=== PATIENT | female | born 1940 | race Caucasian/White ===

== ENCOUNTER 2024-04-09 14:18 | Inpatient (IN) | payer MEDICARE ==
[~2024-04-09] VITALS: Ht 160 cm; Wt 52.6 kg
[2024-04-09] MEDS ORDERED: IPRATROPIUM NEB FS 0.5 MG/2.5 ML AMPUL.NEB ONE (14:45)
[2024-04-09] MEDS ORDERED: ALBUTEROL FS 2.5 MG/3 ML VIAL.NEB ONE (14:45)
[2024-04-09 14:57] VITALS: O2SAT 94
[2024-04-09] MEDS ORDERED: methylPREDNISolone SOD SUCC 125 MG/2ML VIAL ONE (14:57)
[2024-04-09] MEDS: ALBUTEROL FS 2.5 MG/3 ML VIAL.NEB CONTNEB ONE (14:57)
[2024-04-09] MEDS: IPRATROPIUM NEB FS 0.5 MG/2.5 ML AMPUL.NEB NEB ONE (14:57)
[2024-04-09 15:00] LABS: BASOPHILS % (AUTO) 0.1 % (0.0-2.0); EOSINOPHILS % (AUTO) 0.1 % (0.0-6.0); HEMATOCRIT 42 % (33-45); HEMOGLOBIN 13.7 g/dL (11.5-14.8); LYMPHOCYTES # (AUTO) 0.9 K/uL (0.8-4.8); LYMPHOCYTES % (AUTO) 12.6 % (20.0-44.0); MEAN CORPUSCULAR HEMOGLOBIN 31 PG (26.0-33.0); MEAN CORPUSCULAR HGB CONC 32 g/dl (31.0-36.0); MEAN CORPUSCULAR VOLUME 94 fL (82-100); MONOCYTES # (AUTO) 0.3 K/uL (0.1-1.30); MONOCYTES % (AUTO) 4.2 % (2.0-12.0); NEUTROPHILS # (AUTO) 5.9 K/uL (1.8-8.9); PLATELET COUNT (AUTO) 242 K/uL (150-450); RED BLOOD CELL COUNT(AUTO) 4.49 MIL/uL (4.0-5.2); RED CELL DISTRIBUTION WIDTH 15.6 % (11.5-15.0); WHITE BLOOD COUNT (AUTO) 7.2 K/uL (4.3-11.0)
[2024-04-09 15:12] VITALS: O2SAT 94
[2024-04-09 15:13] VITALS: O2SAT 94
[2024-04-09 15:18] LABS: CALCIUM, SERUM 9.1 mg/dL (8.5-10.1); CARBON DIOXIDE 26 mmol/L (21-32); CHLORIDE 105 mmol/L (98-107); CREATININE 0.8 mg/dL (0.6-1.3); GLUCOSE 165 mg/dL (74-106); POTASSIUM 3.6 mmol/L (3.5-5.1); SODIUM SERUM 141 mmol/L (136-145); UREA NITROGEN, BLOOD 15 mg/dL (7-18)
[2024-04-09 15:23] VITALS: O2SAT 92
[2024-04-09 15:25] LABS: ALANINE AMINOTRANSFERASE 18 U/L (12-78); ALBUMIN 2.7 g/dL (3.4-5.0); ALKALINE PHOSPHATASE 69 U/L (46-116); ASPARTATE AMINOTRANSFERASE 8 U/L (15-37); BILIRUBIN,DIRECT 0.1 mg/dL (0.0-0.2); BILIRUBIN,TOTAL 0.4 mg/dL (0.2-1.0); TOTAL PROTEIN, SERUM 6.5 g/dL (6.4-8.2)
[2024-04-09] MEDS: methylPREDNISolone SOD SUCC 125 MG/2ML VIAL IV ONE (15:25)
[2024-04-09 15:26] LABS: LACTIC ACID 1.5 mmol/L (0.4-2.0)
[2024-04-09] MEDS ORDERED: ESCI10TA PO (16:12)
[2024-04-09] MEDS ORDERED: BENZ-13 PO (16:12)
[2024-04-09] MEDS ORDERED: GLIP10TA11 PO (16:12)
[2024-04-09] MEDS ORDERED: PANT40TA2 PO (16:12)
[2024-04-09] MEDS ORDERED: ROFL250T PO (16:12)
[2024-04-09] MEDS ORDERED: PRED20TA PO ×2 (16:12)
[2024-04-09] MEDS ORDERED: ALBUT2 IH (16:12)
[2024-04-09] MEDS ORDERED: SULF1TAB48 PO (16:12)
[2024-04-09] MEDS ORDERED: ALBU8.5H8 IH (16:12)
[2024-04-09] MEDS ORDERED: ONDANSETRON HCL/PF 4 MG/2 ML VIAL IVP PRN (17:00)
[2024-04-09] MEDS ORDERED: MAG HYDROX/AL HYDROX/SIMETH 30 ML UDC PO PRN (17:00)
[2024-04-09] MEDS ORDERED: Z GUARD REMEDY 4 OZ OINT TP PRN (17:00)
[2024-04-09] MEDS ORDERED: DEXTROSE 50%-WATER 50 ML DISP.SYRIN IV PRN (17:00)
[2024-04-09 20:00] VITALS: BP 131/83; TEMP 97.5; O2SAT 97
[2024-04-09] MEDS ORDERED: AZITHROMYCIN 500 MG VIAL ONE (21:07)
[2024-04-09] MEDS: AZITHROMYCIN 500 MG in IV D5W 250 ML IV SCH (21:35)
[2024-04-09] MEDS: BLOOD SUGAR DIAGNOSTIC 1 EACH STRIP VI SCH (21:45)
[2024-04-09] MEDS: *INSULIN REGULAR(HUMULIN R)HUM 100 UNIT/ML VIAL SQ PRN (21:46)
[2024-04-10] VITALS: BP 128/76; TEMP 98.2; O2SAT 98
[2024-04-10] MEDS ORDERED: ALBUTEROL FS 2.5 MG/3 ML VIAL.NEB NEB PRN (03:00)
[2024-04-10] MEDS ORDERED: ALBUTEROL SULFATE 8 GM HFA.AER.AD ONE (03:20)
[2024-04-10] MEDS: ALBUTEROL SULFATE 8 GM HFA.AER.AD IH PRN (03:23)
[2024-04-10 04:00] VITALS: BP 93/54; TEMP 97.3; O2SAT 96
[2024-04-10 08:00] VITALS: BP 132/83; TEMP 97.3; O2SAT 97
[2024-04-10] MEDS: PANTOPRAZOLE 40 MG TABLET.DR PO SCH (09:00)
[2024-04-10] MEDS: ESCITALOPRAM OXALATE (10 MG) 10 MG TABLET PO SCH (09:00)
[2024-04-10] MEDS: dexaMETHasone SOD PHOSPHATE 10 MG/ML VIAL IV SCH (09:01)
[2024-04-10 09:04] LABS: HEMATOCRIT 40 % (33-45); HEMOGLOBIN 13.3 g/dL (11.5-14.8); LYMPHOCYTES # (AUTO) 0.5 K/uL (0.8-4.8); LYMPHOCYTES % (AUTO) 7.8 % (20.0-44.0); MEAN CORPUSCULAR HEMOGLOBIN 31 PG (26.0-33.0); MEAN CORPUSCULAR HGB CONC 33 g/dl (31.0-36.0); MEAN CORPUSCULAR VOLUME 94 fL (82-100); MONOCYTES # (AUTO) 0.3 K/uL (0.1-1.30); MONOCYTES % (AUTO) 5.1 % (2.0-12.0); NEUTROPHILS # (AUTO) 5.3 K/uL (1.8-8.9); NEUTROPHILS % (AUTO) 87.1 % (43.0-81.0); PLATELET COUNT (AUTO) 256 K/uL (150-450); RED BLOOD CELL COUNT(AUTO) 4.29 MIL/uL (4.0-5.2); RED CELL DISTRIBUTION WIDTH 15.2 % (11.5-15.0); WHITE BLOOD COUNT (AUTO) 6.1 K/uL (4.3-11.0)
[2024-04-10 09:17] LABS: CALCIUM, SERUM 8.9 mg/dL (8.5-10.1); CARBON DIOXIDE 31 mmol/L (21-32); CHLORIDE 107 mmol/L (98-107); CREATININE 0.8 mg/dL (0.6-1.3); GLUCOSE 218 mg/dL (74-106); MAGNESIUM 2.5 mg/dL (1.8-2.4); POTASSIUM 4.6 mmol/L (3.5-5.1); SODIUM SERUM 144 mmol/L (136-145); UREA NITROGEN, BLOOD 16 mg/dL (7-18)
[2024-04-10] MEDS: INSULIN REGULAR, HUMAN 100 UNIT/ML 3 ML VIAL SQ PRN (09:20)
[2024-04-10 12:00] VITALS: BP 142/84; TEMP 97.7; O2SAT 98
[2024-04-10 16:00] VITALS: BP 142/77; TEMP 98.2; O2SAT 96
[2024-04-10 20:00] VITALS: BP 130/78; TEMP 98.2; O2SAT 96
[2024-04-11] VITALS (7 sets, daily range): BP systolic 120–145; BP diastolic 76–86; TEMP 97.5–98.4; O2SAT 94–96
[2024-04-11 07:58] LABS: BASOPHILS % (AUTO) 0.1 % (0.0-2.0); EOSINOPHILS % (AUTO) 0.1 % (0.0-6.0); HEMATOCRIT 40 % (33-45); HEMOGLOBIN 13.3 g/dL (11.5-14.8); LYMPHOCYTES # (AUTO) 1.2 K/uL (0.8-4.8); LYMPHOCYTES % (AUTO) 11.3 % (20.0-44.0); MEAN CORPUSCULAR HEMOGLOBIN 31 PG (26.0-33.0); MEAN CORPUSCULAR HGB CONC 33 g/dl (31.0-36.0); MEAN CORPUSCULAR VOLUME 93 fL (82-100); MONOCYTES # (AUTO) 0.7 K/uL (0.1-1.30); NEUTROPHILS # (AUTO) 8.5 K/uL (1.8-8.9); NEUTROPHILS % (AUTO) 81.5 % (43.0-81.0); PLATELET COUNT (AUTO) 291 K/uL (150-450); RED CELL DISTRIBUTION WIDTH 14.7 % (11.5-15.0); WHITE BLOOD COUNT (AUTO) 10.4 K/uL (4.3-11.0)
[2024-04-11 08:12] LABS: CALCIUM, SERUM 8.9 mg/dL (8.5-10.1); CARBON DIOXIDE 31 mmol/L (21-32); CHLORIDE 107 mmol/L (98-107); CREATININE 0.7 mg/dL (0.6-1.3); GLUCOSE 128 mg/dL (74-106); POTASSIUM 3.6 mmol/L (3.5-5.1); SODIUM SERUM 143 mmol/L (136-145); UREA NITROGEN, BLOOD 20 mg/dL (7-18)
[2024-04-11] MEDS: ACETAMINOPHEN 325 MG TABLET PO PRN (16:38)
[2024-04-11] MEDS: CEFTRIAXONE 1 G in IV D5W 50 ML IV SCH (17:05)
[2024-04-11] MEDS ORDERED: ALBUTEROL FS 2.5 MG/0.5 ML VIAL.NEB NEB SCH (19:30)
[2024-04-11] MEDS: LORAZEPAM 1 MG TABLET PO PRN (20:51)
[2024-04-11] MEDS: AZITHROMYCIN 250 MG TABLET PO SCH (21:47)
[2024-04-12] VITALS (8 sets, daily range): BP systolic 116–145; BP diastolic 78–87; TEMP 97.1–98.6; O2SAT 93–100
[2024-04-12] MEDS: TRAZODONE 50 MG TABLET PO SCH
[2024-04-12 08:14] LABS: BASOPHILS % (AUTO) 0.2 % (0.0-2.0); HEMATOCRIT 41 % (33-45); HEMOGLOBIN 13.4 g/dL (11.5-14.8); LYMPHOCYTES # (AUTO) 0.8 K/uL (0.8-4.8); LYMPHOCYTES % (AUTO) 6.2 % (20.0-44.0); MEAN CORPUSCULAR HEMOGLOBIN 31 PG (26.0-33.0); MEAN CORPUSCULAR HGB CONC 33 g/dl (31.0-36.0); MEAN CORPUSCULAR VOLUME 93 fL (82-100); MONOCYTES # (AUTO) 0.8 K/uL (0.1-1.30); MONOCYTES % (AUTO) 6.1 % (2.0-12.0); NEUTROPHILS # (AUTO) 11.2 K/uL (1.8-8.9); NEUTROPHILS % (AUTO) 87.5 % (43.0-81.0); PLATELET COUNT (AUTO) 300 K/uL (150-450); RED BLOOD CELL COUNT(AUTO) 4.36 MIL/uL (4.0-5.2); RED CELL DISTRIBUTION WIDTH 14.9 % (11.5-15.0); WHITE BLOOD COUNT (AUTO) 12.8 K/uL (4.3-11.0)
[2024-04-12 10:22] LABS: CALCIUM, SERUM 9.1 mg/dL (8.5-10.1); CARBON DIOXIDE 30 mmol/L (21-32); CHLORIDE 107 mmol/L (98-107); CREATININE 0.7 mg/dL (0.6-1.3); GLUCOSE 152 mg/dL (74-106); POTASSIUM 3.9 mmol/L (3.5-5.1); SODIUM SERUM 143 mmol/L (136-145); UREA NITROGEN, BLOOD 27 mg/dL (7-18)
[2024-04-12] MEDS: MAGNESIUM HYDROXIDE 30 ML UDC PO PRN (21:50)
[2024-04-13] VITALS (7 sets, daily range): BP systolic 105–127; BP diastolic 68–82; TEMP 97.2–98.1; O2SAT 90–96
[2024-04-13] MEDS ORDERED: AMOX-430 PO (11:23)
[2024-04-13] MEDS ORDERED: FLUT1DIS3 INH (11:23)
[2024-04-13] MEDS ORDERED: AZIT250T13 PO (11:23)
[2024-04-13] MEDS ORDERED: DEXA4TAB PO (11:23)
[2024-04-14] VITALS (7 sets, daily range): BP systolic 117–130; BP diastolic 72–86; TEMP 96.8–98.5; O2SAT 94–100
[2024-04-14] MEDS: IPRATROPIUM/ALBUTEROL INHALER IH SCH ×2 (11:36→17:43)
[2024-04-14] MEDS: dexaMETHasone SOD PHOSPHATE 10 MG/ML VIAL IV SCH (15:30)
[2024-04-15] VITALS: BP 121/75; TEMP 97.3; O2SAT 96
[2024-04-15 04:00] VITALS: BP 132/87; TEMP 97.3; O2SAT 96
[2024-04-15 08:00] VITALS: BP 124/79; TEMP 98.2; O2SAT 93
[2024-04-15] MEDS: GLUCERNA SHAKE 237 ML CAN PO SCH (08:28)
[2024-04-15 12:00] VITALS: BP 125/79; TEMP 97.7; O2SAT 97
[2024-04-15 16:00] VITALS: BP_SYST 130; BP_SYST 150; BP_DIAS 87; BP_DIAS 89; TEMP 98.6; O2SAT 91
[2024-04-15 18:00] VITALS: BP 150/87; TEMP 98.6; O2SAT 91
== END 2024-04-15 20:00 | DRG 177 ==
LOC: ER 14:18 → TRANSITION 16:54 → EDBD 16:54 → TELE1 20:01
PROVIDERS: ADMIT Internal Medicine; ATTEND Internal Medicine
DX: U07.1 COVID-19 (principal); E43 Unspecified severe protein-calorie malnutrition; J12.82 Pneumonia due to coronavirus disease 2019; J96.01 Acute respiratory failure with hypoxia; J44.0 Chronic obstructive pulmonary disease with (acute) lower respiratory infection; J44.1 Chronic obstructive pulmonary disease with (acute) exacerbation; M48.55XA Collapsed vertebra, not elsewhere classified, thoracolumbar region, initial encounter for fracture; E88.09 Other disorders of plasma-protein metabolism, not elsewhere classified; E11.9 Type 2 diabetes mellitus without complications; Z87.891 Personal history of nicotine dependence; Z79.84 Long term (current) use of oral hypoglycemic drugs; F32.9 Major depressive disorder, single episode, unspecified; J43.9 Emphysema, unspecified; T17.990A Other foreign object in respiratory tract, part unspecified in causing asphyxiation, initial encounter; W44.F9XA Other object of natural or organic material, entering into or through a natural orifice, initial encounter; Y92.9 Unspecified place or not applicable
CPT/HCPCS: 36415; 36600; 71045-TC; 71250-TC; 80048-TC; 80076-TC; 82803-TC; 82962-TC; 83605-TC; 83735-TC; 84100-TC; 84484-TC; 85025-TC; 85378-TC; 86140-TC; 87040-TC; 93970-TC; 94761-TC; 94762-TC; 94799-TC; 97110-TC; 97116-TC; 97530-TC; A4223; G0378; J0456; J0696; J1100; J1815; J2919; J7050; J7060